=== PATIENT | female | born 1935 | race Caucasian/White ===

== ENCOUNTER 2021-04-11 22:11 | Inpatient (IN) | payer MEDICARE ==
[~2021-04-11] VITALS: Ht 162.6 cm; Wt 43.1 kg
[2021-04-11 22:24] VITALS: BP 182/77
[2021-04-11] MEDS ORDERED: MURO-128 5% OPH15 M1 (22:38)
[2021-04-11] MEDS ORDERED: PRESERVISION A1 EAC3 (22:38)
[2021-04-11] MEDS ORDERED: SIMVASTATIN PO (22:38)
[2021-04-11] MEDS ORDERED: LEVOTHYROXINE50 MC1 (22:39)
[2021-04-11] MEDS ORDERED: ASA81BEC (22:39)
[2021-04-11] MEDS ORDERED: ALPRAZOLAM PO (22:40)
[2021-04-11] MEDS ORDERED: RESTASIS1 EACH (22:40)
[2021-04-11] MEDS ORDERED: LOTEMAX3.5 GM (22:41)
[2021-04-11 23:20] LABS: ABSOLUTE BASOPHILS 0.1 thou/uL (0.0-0.2); ABSOLUTE EOSINOPHILS 0.1 thou/uL (0.0-0.7); ABSOLUTE LYMPHOCYTES 0.9 thou/uL (0.8-5.3); ABSOLUTE MONOCYTES 0.7 thou/uL (0.0-1.2); ABSOLUTE NEUTROPHILS 7.9 thou/uL (1.6-8.1); BASOPHILS 0.7 %; EOSINOPHILS 0.8 %; HEMATOCRIT 33.2 % (37.0-47.0); HEMOGLOBIN 10.9 gm/dL (12.0-15.0); MCH 31.4 pg (26.0-34.0); MCHC 32.9 g/dL (28.0-37.0); MCV 95.5 fL (80.0-100.0); MONOCYTES 7.1 %; NUCLEATED RBCS 0 /100WBC; PLATELET COUNT* 173 thou/uL (150-400); POLYS 82.4 %; RBC 3.47 mil/uL (4.20-5.00); RDW-CV 14.3 % (10.5-14.5); WBC 9.5 thou/uL (4.0-11.0)
[2021-04-11 23:28] LABS: CALCIUM 8.4 mg/dL (8.5-10.1); CREATININE 0.8 mg/dL (0.6-1.3); POTASSIUM 4.1 mmol/L (3.5-5.1)
[2021-04-12 00:52] VITALS: BP 158/70
[2021-04-12 01:20] VITALS: BP 148/70
[2021-04-12 08:35] VITALS: BP 132/52
[2021-04-12 11:49] VITALS: BP 159/63
[2021-04-12 16:49] VITALS: BP 150/67
[2021-04-12 20:00] VITALS: BP 138/59
[2021-04-12 20:13] LABS: URINE BILIRUBIN NEGATIVE (Negative); URINE BLOOD 2+ (Negative); URINE CLARITY CLEAR; URINE COLOR YELLOW; URINE GLUCOSE-RANDOM NEGATIVE (Negative); URINE KETONES TRACE (Negative); URINE PROTEIN NEGATIVE (Negative); URINE SPECIFIC GRAVITY 1.015 (1.005-1.030); URINE UROBILINOGEN 0.2 E.U./dl (0.2-1.0)
[2021-04-12 20:14] LABS: URINE LEUKOCYTES-REFLEX 3+ (Negative); URINE NITRITE-REFLEX POSITIVE (Negative)
[2021-04-12 20:19] LABS: BACTERIA-REFLEX 1-9 Few /HPF (None Seen); CASTS None Seen /LPF (None Seen); CRYSTALS None Seen /LPF (None Seen); MUCUS None Seen strn/LPF (None Seen); SQUAMOUS 0-3 Few /LPF (0-3); URINE RBC 3-10 Few /HPF (0-2)
--- NOTE | 2021-04-12 20:30 | CON ---
[address] [address] CONSULTATION Name: CORINE BARRY PINA Room: [address] IN M.R.#: [id number] Admission: 04/12/21 Attend Phys: Marcio Ramos Discharge: Date of : 35 Report #: [id number] THIS REPORT FOR: cc: Facundo Estrada Bradley L. DO Greiner, Robert F. II DO ~ DATE OF CONSULTATION: 04/12/2021 ORTHOPEDIC CONSULTATION CHIEF COMPLAINT: Right hip pain. HISTORY OF PRESENT ILLNESS: The patient states she has presented to [facility] after falling on her right hip. States this happened yesterday, was trying to walk in a few stairs. She denies any loss of consciousness. States she does have pain in her right groin, lasts for several hours throughout the day, worse when walking on it. She is not currently on anticoagulants and she does not currently have any filled. The patient has no other concerns at this time. CURRENT MEDICATIONS: Levothyroxine, cyclosporine, Lotemax. ALLERGIES: No known allergies. SOCIAL HISTORY: The patient denies any tobacco, alcohol or illicit drug use. FAMILY HISTORY: Noncontributory. REVIEW OF SYSTEMS: A 12-system review of systems is negative except pertinent positives in the HPI. PAST MEDICAL HISTORY: Hypothyroidism. PHYSICAL EXAMINATION: VITAL SIGNS: Pulse ox 93, blood pressure 182/77, temperature 36.1, pulse 77, respirations 16. GENERAL: The patient is alert and oriented, cooperative with exam. EYES: PERRLA, EOMI. EARS, NOSE AND THROAT: Moist mucous membranes. No masses or nodules. CARDIOVASCULAR: Regular rate and rhythm. RESPIRATORY: No shortness of breath. No coughing. No wheezes. Equal breath sounds. GASTROINTESTINAL: No HSM. Bowels tender. Normal bowel sounds. MUSCULOSKELETAL: The patient has some pain in the right hip. Limited range of motion. Other joints [place] [address] CONSULTATION Name: CORINE BARRY Room: [address] IN ..#: [id number] Admission: 04/12/21 Attend Phys: Marcio Ramos Discharge: Date of : 35 Report #: [id number] PSYCHIATRIC: The patient has normal mood, affect, and judgment. NEUROLOGIC: The patient denies any numbness or tingling. Does have intact sensation to the lower extremities. IMAGING: X-ray evaluation shows an impacted subcapital hip fracture on the right without displacement. LABORATORY DATA: Per chart. ASSESSMENT: 1. Right subcapital hip fracture. 2. Hypothyroidism. PLAN: At this time, the patient is discussed closed treatment nonoperatively as well as in situ pinning and hemiarthroplasty. Would like to proceed with in situ pinning. She is discussed risks, benefits, complications, indications of the procedure including but not limited to , heart attack, stroke, infection, blood clot, pulmonary embolus as well as risk of neurovascular compromise, risk of anesthesia. The patient is also discussed the risk that this fracture may continue to deteriorate due to blood supply to the head and should it get avascular necrosis or compression screws may penetrate needing further surgery. The patient is understanding all risks and wished to proceed. We will proceed with right hip in situ pinning. The patient is n.p.o. and we will proceed with pain medication afterwards as well as possible new placement due to limited weightbearing at the completion of the procedure. All questions were answered with the family. I appreciate this consultation. <ELECTRONICALLY SIGNED> By: Jin Panchal II, DO 04/12/21 2030 [id number] [id number] Panchal II, DO /nt
[2021-04-13 00:04] VITALS: BP 105/72
[2021-04-13 03:39] VITALS: BP 146/70
[2021-04-13 04:10] LABS: HEMATOCRIT 29.2 % (37.0-47.0); HEMOGLOBIN 9.7 gm/dL (12.0-15.0); MCHC 33.1 g/dL (28.0-37.0); MCV 96.7 fL (80.0-100.0); MPV 7.5 fl. (7.2-11.1); RBC 3.02 mil/uL (4.20-5.00); WBC 7.7 thou/uL (4.0-11.0)
[2021-04-13 04:46] LABS: CALCIUM 7.9 mg/dL (8.5-10.1); CREATININE 0.8 mg/dL (0.6-1.3); POTASSIUM 4.2 mmol/L (3.5-5.1)
[2021-04-13 11:46] VITALS: BP 119/56
[2021-04-13 16:00] VITALS: BP 94/55
[2021-04-13 20:15] VITALS: BP 109/51
[2021-04-14] VITALS: BP 136/55
[2021-04-14 09:10] VITALS: BP 125/58
[2021-04-14 15:58] VITALS: BP 132/66
[2021-04-15 00:04] VITALS: BP 169/68
[2021-04-15 04:53] VITALS: BP 150/65
[2021-04-15 08:30] VITALS: BP 84/42
[2021-04-15] MEDS ORDERED: XARELTO10 MG PO (09:05)
--- NOTE | 2021-04-15 13:41 | OP ---
[address] [address] OPERATIVE REPORT Name: CORINE BARRY Room: [address] IN M.R.#: [id number] Admission: 04/12/21 Attend Phys: Marcio Ramos Discharge: Date of : 35 Report #: [id number] THIS REPORT FOR: cc: Facundo Estrada Bradley L. DO Greiner, Robert F. II DO ~ DATE OF SURGERY: 04/12/2021 ORTHOPEDIC OPERATIVE REPORT PREOPERATIVE DIAGNOSIS: Right hip impacted subcapital hip fracture. POSTOPERATIVE DIAGNOSIS: Right hip impacted subcapital hip fracture. PROCEDURE: Right hip in situ pinning. SURGEON: Jin Panchal II, DO. TYPECASTING MACHINE OPERATOR: None. ANESTHESIA: Per operative record. ESTIMATED BLOOD LOSS: 10 mL. ANTIBIOTICS: Ancef preoperatively. DRAINS: None. COMPLICATIONS: None. CONDITION: The patient stable to recovery room. IMPLANTS USED: A [employer] 7.0 cannulated screws x 3. OPERATIVE PROCEDURE: The patient was taken to the operative suite, placed supine on the operating table, given appropriate anesthesia. The patient's right leg was placed in the [place] table leg miller and sterilely prepped and draped and visualized with x-ray to be an impacted subcapital hip fracture, which was nondisplaced. Making a lateral incision, carried down to subcutaneous tissues. The guide pin was introduced on lateral cortex visualized with both AP and lateral direction on C-arm and this initial pin was placed in the inferior central location. Two more pins were placed in a superior anterior and superior posterior position forming an inverted triangle. Cortex reamer was then utilized, depth gauge was utilized and the appropriate length screws were then placed up into the head, taking care not to perforate the joint cortex. Final images were taken under C-arm in both AP [place] [address] OPERATIVE REPORT Name: JHONNYCORINE ANN Room: [address] IN [facility]#: [id number] Admission: 04/12/21 Attend Phys: Marcio Ramos Discharge: Date of : 35 Report #: [id number] excellent reduction of the fracture, excellent placement of the pins with no evidence of joint preparation. Final irrigation was performed of the wound. The tensor fascia was closed with #1 Vicryl in tfymqm-ly-fgeoh fashion. Skin was closed with 2-0 Vicryl and skin ceci. Sterile dressing was then applied and the patient transported to recovery in stable condition. All counts were correct throughout the procedure. <ELECTRONICALLY SIGNED> By: Jin Panchal II, DO 04/15/21 1341 [id number] Panchal II, DO /nt
[2021-04-15 16:00] VITALS: BP 104/46
[2021-04-15 20:00] VITALS: BP 148/86
[2021-04-16 08:00] VITALS: BP 112/62
[2021-04-16 16:04] VITALS: BP 96/44
[2021-04-16 20:30] VITALS: BP 105/60
[2021-04-17 00:05] VITALS: BP 115/68
[2021-04-17 04:34] VITALS: BP 110/46
[2021-04-17 08:00] VITALS: BP 122/64
[2021-04-17 08:41] LABS: HEMATOCRIT 26.1 % (37.0-47.0); HEMOGLOBIN 8.6 gm/dL (12.0-15.0); MCH 31.7 pg (26.0-34.0); MCHC 33.2 g/dL (28.0-37.0); MCV 95.6 fL (80.0-100.0); MPV 7.9 fl. (7.2-11.1); RBC 2.72 mil/uL (4.20-5.00); RDW-CV 13.7 % (10.5-14.5); WBC 6.6 thou/uL (4.0-11.0)
[2021-04-17 09:04] LABS: CALCIUM 8.2 mg/dL (8.5-10.1); CREATININE 0.8 mg/dL (0.6-1.3); MAGNESIUM 2.3 mg/dL (1.8-2.4); POTASSIUM 4.7 mmol/L (3.5-5.1); TOTAL BILIRUBIN 0.5 mg/dL (<0.1-1.0); TOTAL PROTEIN 6.2 g/dL (6.4-8.2)
[2021-04-17] MEDS ORDERED: LEVOTHYROXINE50 MC1 PO (09:29)
[2021-04-17] MEDS ORDERED: XANAX 0.25 MG0.25 MG PO (09:29)
[2021-04-17] MEDS ORDERED: RESTASIS1 EACH INTRAOCULR (09:29)
[2021-04-17] MEDS ORDERED: ASA81BEC PO (09:29)
[2021-04-17] MEDS ORDERED: HYDROCODON-ACE1 EAC7 PO (09:29)
[2021-04-17] MEDS ORDERED: SIMVASTATIN PO (09:29)
[2021-04-17] MEDS ORDERED: XARELTO10 MG PO (09:29)
[2021-04-17] MEDS ORDERED: GABAPENTIN 100100 MG PO (09:29)
[2021-04-17 16:00] VITALS: BP 125/68
[2021-04-17 19:45] VITALS: BP 130/70
[2021-04-18 08:13] VITALS: BP 124/66
[2021-04-18 16:07] VITALS: BP 104/47
[2021-04-18 20:00] VITALS: BP 141/57
[2021-04-19 16:28] VITALS: BP 147/52
[2021-04-19 19:45] VITALS: BP 108/48
[2021-04-20 08:00] VITALS: BP 109/61
== END 2021-04-20 16:15 | DRG 480 ==
LOC: M.ERS 22:11 → M.TBA-ER 04-12 00:25 → M.3W 04-12 00:25
PROVIDERS: Emergency Medicine; Internal Medicine; ADMIT Internal Medicine; ATTEND Internal Medicine
PROC: 0QS634Z Reposition Right Upper Femur with Internal Fixation Device, Percutaneous Approach (ICD-10-PCS; principal; 2021-04-12)
DX: S72.011A Unspecified intracapsular fracture of right femur, initial encounter for closed fracture (principal); E43 Unspecified severe protein-calorie malnutrition; S42.201A Unspecified fracture of upper end of right humerus, initial encounter for closed fracture; Z68.1 Body mass index [BMI] 19.9 or less, adult; E03.9 Hypothyroidism, unspecified; E78.00 Pure hypercholesterolemia, unspecified; E78.5 Hyperlipidemia, unspecified; Z20.822 Contact with and (suspected) exposure to COVID-19; G62.9 Polyneuropathy, unspecified; W18.39XA Other fall on same level, initial encounter; Y93.89 Activity, other specified; Z79.899 Other long term (current) drug therapy; Y92.89 Other specified places as the place of occurrence of the external cause; Y99.8 Other external cause status

== ENCOUNTER 2021-05-10 21:04 | Emergency (ER) | payer MEDICARE ==
[~2021-05-10] VITALS: Ht 162.6 cm; Wt 42.2 kg
[~2021-05-10 21:04] MED LIST: ALPRAZOLAM PO; ASA81BEC; ASA81BEC PO; GABAPENTIN 100100 MG PO; HYDROCODON-ACE1 EAC7 PO; LEVOTHYROXINE50 MC1; LEVOTHYROXINE50 MC1 PO; LOTEMAX3.5 GM; MURO-128 5% OPH15 M1; PRESERVISION A1 EAC3; RESTASIS1 EACH; RESTASIS1 EACH INTRAOCULR; SIMVASTATIN PO; XANAX 0.25 MG0.25 MG PO; XARELTO10 MG PO
[2021-05-10] MEDS ORDERED: IPRAT-ALBUT 0.5-3 ML INH (21:15)
[2021-05-10] MEDS ORDERED: FLONASE 0.05%50 MCG NARES (21:16)
[2021-05-10] MEDS ORDERED: ONDANSETRON ODT4 MG PO (21:16)
[2021-05-10 21:48] LABS: URINE BILIRUBIN NEGATIVE (Negative); URINE BLOOD 3+ (Negative); URINE CLARITY SL HAZY; URINE COLOR YELLOW; URINE GLUCOSE-RANDOM NEGATIVE (Negative); URINE KETONES NEGATIVE (Negative); URINE LEUKOCYTES-REFLEX 1+ (Negative); URINE NITRITE-REFLEX NEGATIVE (Negative); URINE PROTEIN 1+ (Negative); URINE SPECIFIC GRAVITY >= 1.030 (1.005-1.030); URINE UROBILINOGEN 0.2 E.U./dl (0.2-1.0)
[2021-05-10 21:50] LABS: BACTERIA-REFLEX >30 Many /HPF (None Seen); CRYSTALS None Seen /LPF (None Seen); FINE GRANULAR CASTS 0-3 Few /LPF (None Seen); HYALINE CASTS 0-3 Few /LPF (None Seen); MUCUS 4-6 Moderate strn/LPF (None Seen); SQUAMOUS 0-3 Few /LPF (0-3); TRANSITIONAL EPITHEL CELL 0-3 Few /LPF (None Seen); URINE RBC >20 Many /HPF (0-2); WBC CLUMPS Few (None Seen)
[2021-05-10 21:56] LABS: MCH 30.4 pg (26.0-34.0); MCHC 29.7 g/dL (28.0-37.0); MCV 102.5 fL (80.0-100.0); MPV 7.2 fl. (7.2-11.1); NUCLEATED RBCS 0 /100WBC; PLATELET COUNT* 316 thou/uL (150-400); RBC 1.59 mil/uL (4.20-5.00); RDW-CV 17.3 % (10.5-14.5); WBC 29.6 thou/uL (4.0-11.0)
[2021-05-10 21:59] LABS: HEMATOCRIT 16.3 % (37.0-47.0); HEMOGLOBIN 4.8 gm/dL (12.0-15.0)
[2021-05-10 22:11] LABS: CALCIUM 8.1 mg/dL (8.5-10.1); CREATININE 1.8 mg/dL (0.6-1.3); POTASSIUM 5.8 mmol/L (3.5-5.1)
[2021-05-10 22:16] LABS: ALBUMIN 2.1 g/dL (3.4-5.0); TOTAL BILIRUBIN 0.2 mg/dL (<0.1-1.0); TOTAL PROTEIN 5.1 g/dL (6.4-8.2)
[2021-05-10 22:48] LABS: ABSOLUTE LYMPHOCYTES 2.1 thou/uL (0.8-5.3); ABSOLUTE MONOCYTES 1.2 thou/uL (0.0-1.2); ABSOLUTE NEUTROPHILS 26.3 thou/uL (1.6-8.1); ANISOCYTOSIS 1+; HYPOCHROMASIA Occasional; PLATELET ESTIMATE ADEQUATE
[2021-05-10 22:49] LABS: MACROCYTES Occasional; POLYCHROMASIA Occasional
[2021-05-10 22:55] VITALS: BP 183/161
--- NOTE | 2021-05-12 09:45 | EKG ---
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: [place] : 1935 Requested By: Eden Cabello Order Number: [id number] MD: Wes Wood Measurements Intervals [place] Rate: 120 P: 71 AK: 141 QRS: 55 QRSD: 86 T: 208 QT: 299 QTc: 423 Interpretive Statements Sinus tachycardia LAE, consider biatrial enlargement Nonspecific repol abnormality,diffuse No previous ECG available for comparison Electronically Signed On 05-12-2021 9:45:44 [employer]LAZE [employer] by Wes Wood [email or web address] <ELECTRONICALLY SIGNED> By: Wes Wood MD, [facility] 05/12/21 0945 05 05 Wes Wood MD, [facility] /EPI
== END 2021-05-10 22:55 ==
LOC: M.ERS 21:04
PROVIDERS: Personal Emergency Response Attendant
DX: K92.1 Melena (principal); E03.9 Hypothyroidism, unspecified; E78.00 Pure hypercholesterolemia, unspecified; Z79.899 Other long term (current) drug therapy